=== PATIENT | male | born 1945 | race Caucasian/White ===

== ENCOUNTER 2018-04-19 15:39 | Emergency (ER) | payer MEDICARE ==
[~2018-04-19] VITALS: Ht 180.3 cm; Wt 95.3 kg
[~2018-04-19 15:39] MED LIST: ASPIR 8181 MG; FAMOTIDINE; MULTIVITAMIN1 CTB; NITROTAB0.4 MG; PANTOPRAZOLE40 MG PO; PLAVIX75 MG; SIMVASTATIN40 MG; SYNTHROID0.125 MG
[2018-04-19] MEDS ORDERED: CEPHALEXIN500 M1 PO (16:23)
== END 2018-04-19 18:20 | disposition home or self-care (01) ==
LOC: ED 15:39
DX: S61.212A Laceration without foreign body of right middle finger without damage to nail, initial encounter (principal); Z23 Encounter for immunization; Z79.899 Other long term (current) drug therapy; Z79.82 Long term (current) use of aspirin; Z90.49 Acquired absence of other specified parts of digestive tract; W45.8XXA Other foreign body or object entering through skin, initial encounter; Y93.89 Activity, other specified; Y92.098 Other place in other non-institutional residence as the place of occurrence of the external cause; Y99.8 Other external cause status

== ENCOUNTER 2019-05-06 14:08 | Inpatient (IN) | payer MEDICARE ==
[~2019-05-06] VITALS: Ht 180.3 cm; Wt 98.1 kg
--- NOTE | ~2019-05-06 | EKG ---
[place], [place] ELECTROCARDIOGRAM REPORT NAME: MARCY BHAKTA UNIT #: [id number] ROOM: 406 DOCTOR: CRISTY DRAFT REPORT BIRTHDATE: [birth year] [facility] Test Date: 2019-05-06 Test Time: 19:47:05 Pat Name: MARCY BHAKTA Department: Room: 406 Gender: M Keyboard Specialist: : 1945 Requested By: KALE HERNANDEZ Order Number: [id number] Reading MD: Laura Ramos MD Measurements Intervals [place] Rate: 81 P: 54 LA: 207 QRS: 45 QRSD: 112 T: 46 QT: 406 QTc: 472 Interpretive Statements Sinus rhythm Abnormal R-wave progression, early transition Inferior infarct, old Baseline wander in lead(s) V2 Electronically Signed On 05-08-2019 8:53:55 PST by Laura Ramos MD CM:EKGRPT:ELECTROCARDIOGRAM REPORT 46 [id number] KALE MUNIZ DRAFT REPORT KALE HERNANDEZ
--- NOTE | ~2019-05-06 | EKG ---
[place], [place] ELECTROCARDIOGRAM REPORT NAME: MARCY BHAKTA UNIT #: [id number] ROOM: 406 DOCTOR: CRISTY DRAFT REPORT BIRTHDATE: [birth year] [facility] Test Date: 2019-05-06 Test Time: 22:36:39 Pat Name: MARCY BHAKTA Department: Room: 406 Gender: M Column Precaster: : 1945 Requested By: KALE HERNANDEZ Order Number: [id number] Reading MD: Laura Ramos MD Measurements Intervals [place] Rate: 71 P: 35 GA: 246 QRS: 44 QRSD: 121 T: 60 QT: 414 QTc: 450 Interpretive Statements Sinus rhythm Prolonged GA interval Nonspecific intraventricular conduction delay Inferior infarct, old Baseline wander in lead(s) I,II,aVR Electronically Signed On 05-08-2019 8:54:10 PST by Laura Ramos MD CM:EKGRPT:ELECTROCARDIOGRAM REPORT 0854 KALE MUNIZ DRAFT REPORT KALE HERNANDEZ
--- NOTE | ~2019-05-06 | O ---
[place], [place] OPERATIVE NOTE NAME: MARCY BHAKTA [facility] #: [id number] UNIT #: [id number] ROOM: 406 DOCTOR: ARRON GUZMAN DO BIRTHDATE: [birth year] DOS: 05/07/2019 PREOPERATIVE DIAGNOSIS: Right femoral neck fracture. POSTOPERATIVE DIAGNOSIS: Right femoral neck fracture. OPERATIVE PROCEDURE: Right femoral hemiarthroplasty bipolar. SURGEON: Arron Guzman DO. CONTRACT CLERK: Humberto Hawkins Hoder. ANESTHESIA: JUAN Carrera, general endotracheal. INDICATIONS: The patient is a 73-year-old male with a history of a fall at his home yesterday while he was getting dressed. He states his foot caught in his pants and he fell landing on the right hip causing pain and inability to ambulate. X-rays indicated a minimally displaced mid femoral neck fracture. The risks and benefits of the procedure were explained to the patient preoperatively. Preoperative labs and x-rays were obtained including medical and cardiac optimization. PROCEDURE: The right hip was marked in the holding room. The patient was brought to the operative suite. A general anesthetic with endotracheal intubation was performed. The patient was placed in a lateral decubitus position with the right lower extremity superior positioned in a Bolton device. All bony prominences were padded. Timeout was performed. The right lower extremity was prepped and draped in the usual orthopedic fashion. The patient received Ancef 2 grams IV piggyback. The posterior or southern incision was planned and marked with a marking pen. The skin was injected with Marcaine 0.5% with epinephrine. The posterior incision was made sharply with a scalpel. Subcutaneous tissue was spread down to the level of the gluteus christopher. The gluteus christopher was divided along its fibers. The extremity was flexed and externally rotated and the short external rotators were identified. The fracture was noted to be significantly displaced. The short external rotators were released from their insertion on the greater trochanter. These were retracted posteriorly. The fractured neck was noted to have broken through the capsule. This was cleared of any soft tissue. The guide was used to pawan the calcar cut. This was made sharply with an oscillating saw. The femoral neck was removed with an osteotome. The entry point was lateralized using a box osteotome followed by straight awl and a lateral rasp. The small starter broach was utilized followed by a size 8 broach and progressing to a size 12. Attention was paid to the anteversion. The femoral head was removed using a large Steinmann pin threaded and a skid. This was taken to the back table and measured and found to be a 54 mm outer diameter. The acetabulum was irrigated and cleared of any bony debris. Trials were placed and the size 12 femoral stem with a high offset +5 head and a [place], [place] OPERATIVE NOTE NAME: MARCY BHAKTA UNIT #: [id number] ROOM: [facility] DOCTOR: ARRON GUZMAN DO BIRTHDATE: [birth year] 54 mm outer diameter bipolar head were noted to have the best reduction and stability. The trials were removed and the area was again copiously irrigated with normal saline. The implants the Corail cementless femoral stem was pressfit into place. This was a size 12. The Articul/stephany femoral head with a bipolar head were cold welded into place. The fit and fill were found to be adequate as the hip was reduced into the acetabulum. The hip was again taken through a range of motion with flexion, extension, internal and external rotation. Shucking was also evaluated. There was noted to be good motion and stability. The area was filled with TXA. Any bleeding was controlled with electrocautery. After 10 minutes, this was irrigated and the fascia was closed on the gluteus musculature after the short external rotators had been repaired. This was done with 0 Vicryl. 2-0 Vicryl was used for the adipose layer. Skin closure was completed with annabella. The incision was again injected with Marcaine 0.5% with epinephrine. Xeroform, 4 x 4s, ABDs, and Tegaderm dressing were applied. The abduction pillow was put into place. The patient was returned to a supine position. The anesthetic was reversed. The patient was extubated and taken to the recovery room in satisfactory condition. Sponge and needle count correct. ESTIMATED BLOOD LOSS: 250 mL. SPECIMENS: Femoral head and a portion of the neck. DRAINS: None. PACKING: None. COMPLICATIONS: None. The patient received Ancef 2 grams IV piggyback preoperatively. Local injection with Marcaine 0.5% with epinephrine was utilized. TXA was utilized within the wound. IMPLANTS: 1. DePuy Corail hip system, size 12 high offset, no collar, cementless. 2. Self-centering bipolar head, 54 mm outer diameter. 3. Articul/stephany femoral head 28 mm x +5 mm taper. [place], [place] OPERATIVE NOTE NAME: MARCY BHAKTA Yuri UNIT #: [id number] ROOM: [facility] DOCTOR: ARRON GUZMAN DO BIRTHDATE: [birth year] ARRON GUZMAN DO CM:OPRECORD:OPERATIVE NOTE 09 23 ARRON GUZMAN DO 05/07/192024 interface
--- NOTE | ~2019-05-06 | EKG ---
[place], [place] ELECTROCARDIOGRAM REPORT NAME: MARCY BHAKTA UNIT #: [id number] ROOM: 406 DOCTOR: CRISTY DRAFT REPORT BIRTHDATE: [birth year] [facility] Test Date: 2019-05-06 Test Time: 17:23:38 Pat Name: MARCY BHAKTA Department: Room: 406 Gender: M Can Sterilizer: : 1945 Requested By: KALE HERNANDEZ Order Number: [id number] Reading MD: Laura Ramos MD Measurements Intervals [place] Rate: 78 P: 54 IA: 210 QRS: 34 QRSD: 110 T: 41 QT: 420 QTc: 479 Interpretive Statements Sinus rhythm Consider inferior infarct Posterior infarct, old No previous ECG available for comparison Electronically Signed On 05-08-2019 8:53:46 PST by Laura Ramos MD CM:EKGRPT:ELECTROCARDIOGRAM REPORT [id number] KALE MUNIZ DRAFT REPORT KALE HERNANDEZ
[~2019-05-06 14:08] MED LIST changes: +CEPHALEXIN500 M1 PO
[2019-05-06 14:09] VITALS: BP 164/65
[2019-05-06 16:52] LABS: BASO # 0.1 10*3/uL (0.0-0.1); BASO % 0.3 % (0.0-1.0); EOS % 0.1 % (1.0-4.0); HEMATOCRIT 46.3 % (42.0-52.0); HEMOGLOBIN 15.3 g/dl (14.0-18.0); LYMPH % 11.7 % (27.0-41.0); MEAN CELL VOLUME 89.7 fl (80.0-94.0); MEAN CORPUSCULAR HGB 29.7 pg (27.0-31.0); MEAN PLATELET VOLUME 9.3 fl (9.6-12.3); MONO # 0.9 10*3/uL (0.1-1.0); MONO % 5.2 % (3.0-9.0); NEUT # 14.4 10*3/uL (2.3-7.9); NEUT % 82.2 % (47.0-73.0); PLATELET COUNT AUTOMATED 211 10*3/uL (130-400); RED BLOOD COUNT 5.16 10*6/uL (4.50-5.90); RED CELL DISTRI WIDTH 12.6 % (0-14.5); WHITE BLOOD COUNT 17.5 10*3/uL (4.8-10.8)
[2019-05-06 16:58] LABS: ALKALINE PHOSPHATASE 89 U/L (45-117); BUN 15 mg/dl (7-24); CHLORIDE 106 mmol/L (98-107); CREATININE 1.16 mg/dL (0.70-1.30); POTASSIUM 4.8 mmol/L (3.5-5.1); SGOT/AST 24 IU/L (3-35); SGPT/ALT 28 U/L (12-78); SODIUM 140 mmol/L (136-145); TOTAL PROTEIN 7.2 gm/dL (6.4-8.2)
[2019-05-06] MEDS ORDERED: CYMBALTA60 MG PO (17:44)
[2019-05-06] MEDS ORDERED: OMEPRAZOLE40 MG PO (17:44)
[2019-05-06 17:51] VITALS: BP 136/81
[2019-05-06 18:40] LABS: BILIRUBIN NEGATIVE (NEGATIVE); BLOOD 1+ (NEGATIVE); CLARITY CLEAR (CLEAR); COLOR YELLOW (YELLOW); GLUCOSE NEGATIVE (NEGATIVE); KETONE TRACE (NEGATIVE); LEUKO ESTERASE NEGATIVE (NEGATIVE); NITRITE NEGATIVE (NEGATIVE); PH 6.5 (5.0-9.0); SPECIFIC GRAVITY 1.015 (1.005-1.030)
[2019-05-06 18:48] LABS: MUCOUS 1+
[2019-05-06 20:00] VITALS: BP 128/74
[2019-05-07] VITALS (9 sets, daily range): BP systolic 122–162; BP diastolic 58–83
[2019-05-07 06:54] LABS: BASO # 0.1 10*3/uL (0.0-0.1); BASO % 0.7 % (0.0-1.0); EOS # 0.2 10*3/uL (0.0-0.4); EOS % 1.9 % (1.0-4.0); HEMATOCRIT 43.8 % (42.0-52.0); HEMOGLOBIN 14.7 g/dl (14.0-18.0); LYMPH # 2.5 10*3/uL (1.3-4.4); LYMPH % 23.3 % (27.0-41.0); MEAN CORPUSCULAR HGB 29.9 pg (27.0-31.0); MEAN CORPUSCULAR HGB CONC 33.6 g/dl (33.0-37.0); MEAN PLATELET VOLUME 9.4 fl (9.6-12.3); MONO # 0.9 10*3/uL (0.1-1.0); MONO % 8.4 % (3.0-9.0); NEUT # 7.1 10*3/uL (2.3-7.9); NEUT % 65.4 % (47.0-73.0); PLATELET COUNT AUTOMATED 184 10*3/uL (130-400); RED BLOOD COUNT 4.92 10*6/uL (4.50-5.90); RED CELL DISTRI WIDTH 12.5 % (0-14.5); WHITE BLOOD COUNT 10.9 10*3/uL (4.8-10.8)
[2019-05-07 07:21] LABS: ALBUMIN 3.5 gm/dl (3.1-4.5); ALKALINE PHOSPHATASE 84 U/L (45-117); BUN 15 mg/dl (7-24); CHLORIDE 107 mmol/L (98-107); CHOLESTEROL 159 mg/dL (<200); CREATININE 1.12 mg/dL (0.70-1.30); HDL CHOLESTEROL 41 mg/dl (40-60); LDL CHOLESTEROL 89 mg/dL (9-159); PHOSPHOROUS 2.3 mg/dL (2.5-4.9); SGOT/AST 21 IU/L (3-35); SGPT/ALT 24 U/L (12-78); SODIUM 139 mmol/L (136-145); TOTAL PROTEIN 6.8 gm/dL (6.4-8.2); TRIGLYCERIDES 146 mg/dl (<150); VLDL CHOLESTEROL 29 mg/dL (6-40)
[2019-05-08] VITALS: BP 138/69
[2019-05-08 06:43] LABS: HEMATOCRIT 43.2 % (42.0-52.0); HEMOGLOBIN 14.3 g/dl (14.0-18.0); MEAN CELL VOLUME 89.6 fl (80.0-94.0); MEAN CORPUSCULAR HGB 29.7 pg (27.0-31.0); MEAN CORPUSCULAR HGB CONC 33.1 g/dl (33.0-37.0); MEAN PLATELET VOLUME 9.5 fl (9.6-12.3); PLATELET COUNT AUTOMATED 232 10*3/uL (130-400); RED BLOOD COUNT 4.82 10*6/uL (4.50-5.90); RED CELL DISTRI WIDTH 12.8 % (0-14.5); WHITE BLOOD COUNT 16.3 10*3/uL (4.8-10.8)
[2019-05-08 07:07] LABS: BUN 13 mg/dl (7-24); CHLORIDE 102 mmol/L (98-107); CREATININE 1.22 mg/dL (0.70-1.30); SODIUM 137 mmol/L (136-145)
[2019-05-08 08:00] VITALS: BP 122/70
[2019-05-08 08:19] LABS: PLATELET SUFFICIENCY NORMAL (NORMAL); TOTAL CELLS COUNTED 100 #CELLS
[2019-05-08 12:00] VITALS: BP 121/72
[2019-05-08 16:00] VITALS: BP 116/56
[2019-05-08 20:00] VITALS: BP 131/64
[2019-05-09] VITALS: BP 138/69
[2019-05-09 06:47] LABS: HEMATOCRIT 35.8 % (42.0-52.0); HEMOGLOBIN 11.9 g/dl (14.0-18.0); MEAN CELL VOLUME 89.1 fl (80.0-94.0); MEAN CORPUSCULAR HGB 29.6 pg (27.0-31.0); MEAN CORPUSCULAR HGB CONC 33.2 g/dl (33.0-37.0); MEAN PLATELET VOLUME 9.6 fl (9.6-12.3); PLATELET COUNT AUTOMATED 175 10*3/uL (130-400); RED BLOOD COUNT 4.02 10*6/uL (4.50-5.90); RED CELL DISTRI WIDTH 12.9 % (0-14.5); WHITE BLOOD COUNT 14.3 10*3/uL (4.8-10.8)
[2019-05-09 06:58] LABS: BUN 17 mg/dl (7-24); CHLORIDE 102 mmol/L (98-107); CREATININE 0.98 mg/dL (0.70-1.30); POTASSIUM 3.8 mmol/L (3.5-5.1); SODIUM 135 mmol/L (136-145)
[2019-05-09 07:59] LABS: TOTAL CELLS COUNTED 100 #CELLS
[2019-05-09 08:00] VITALS: BP 110/70; BP 114/56
[2019-05-09 08:00] LABS: PLATELET SUFFICIENCY NORMAL (NORMAL)
[2019-05-09 11:48] VITALS: BP 112/62
[2019-05-09 16:00] VITALS: BP 131/70
[2019-05-09 20:00] VITALS: BP 118/55
[2019-05-10] VITALS: BP 133/61
[2019-05-10 01:13] LABS: BILIRUBIN NEGATIVE (NEGATIVE); BLOOD NEGATIVE (NEGATIVE); CLARITY CLEAR (CLEAR); COLOR YELLOW (YELLOW); GLUCOSE NEGATIVE (NEGATIVE); KETONE NEGATIVE (NEGATIVE); LEUKO ESTERASE NEGATIVE (NEGATIVE); NITRITE NEGATIVE (NEGATIVE)
[2019-05-10 06:37] LABS: BASO % 0.3 % (0.0-1.0); EOS # 0.2 10*3/uL (0.0-0.4); EOS % 2.3 % (1.0-4.0); HEMATOCRIT 34.5 % (42.0-52.0); HEMOGLOBIN 11.3 g/dl (14.0-18.0); LYMPH # 2.1 10*3/uL (1.3-4.4); LYMPH % 20.5 % (27.0-41.0); MEAN CELL VOLUME 88.9 fl (80.0-94.0); MEAN CORPUSCULAR HGB 29.1 pg (27.0-31.0); MEAN CORPUSCULAR HGB CONC 32.8 g/dl (33.0-37.0); MEAN PLATELET VOLUME 9.7 fl (9.6-12.3); MONO % 9.9 % (3.0-9.0); NEUT # 6.8 10*3/uL (2.3-7.9); NEUT % 66.6 % (47.0-73.0); PLATELET COUNT AUTOMATED 208 10*3/uL (130-400); RED BLOOD COUNT 3.88 10*6/uL (4.50-5.90); RED CELL DISTRI WIDTH 12.8 % (0-14.5); WHITE BLOOD COUNT 10.2 10*3/uL (4.8-10.8)
[2019-05-10 06:45] LABS: BUN 16 mg/dl (7-24); CHLORIDE 100 mmol/L (98-107); CREATININE 0.99 mg/dL (0.70-1.30); POTASSIUM 3.7 mmol/L (3.5-5.1); SODIUM 135 mmol/L (136-145)
[2019-05-10 08:00] VITALS: BP 144/72
[2019-05-10 12:00] VITALS: BP 132/67
[2019-05-10] MEDS ORDERED: Lovenox40 MG/0.4 PO (13:29)
[2019-05-10] MEDS ORDERED: ECPIRIN325 MG PO (13:29)
[2019-05-10] MEDS ORDERED: PERCOCET 7.5-31 EACH PO (14:09)
== END 2019-05-10 16:20 | disposition other institution (70) | DRG 470 ==
LOC: ED 14:08 → 4E 16:07 → EDHOLD 16:07 → 4E 17:25
PROVIDERS: Family Medicine; Internal Medicine; Orthopaedic Surgery; Student in an Organized Health Care Education/Training Program; ADMIT Internal Medicine
PROC: 0SRR0JA Replacement of Right Hip Joint, Femoral Surface with Synthetic Substitute, Uncemented, Open Approach (ICD-10-PCS; principal; 2019-05-07)
DX: S72.001A Fracture of unspecified part of neck of right femur, initial encounter for closed fracture (principal); E87.1 Hypo-osmolality and hyponatremia; E83.39 Other disorders of phosphorus metabolism; D72.829 Elevated white blood cell count, unspecified; E66.9 Obesity, unspecified; F32.9 Major depressive disorder, single episode, unspecified; E03.9 Hypothyroidism, unspecified; E78.5 Hyperlipidemia, unspecified; K21.9 Gastro-esophageal reflux disease without esophagitis; Z96.652 Presence of left artificial knee joint; I25.10 Atherosclerotic heart disease of native coronary artery without angina pectoris; I10 Essential (primary) hypertension; M19.90 Unspecified osteoarthritis, unspecified site; R73.9 Hyperglycemia, unspecified; W01.0XXA Fall on same level from slipping, tripping and stumbling without subsequent striking against object, initial encounter; Y93.89 Activity, other specified; Y99.8 Other external cause status; Z90.49 Acquired absence of other specified parts of digestive tract; Z95.5 Presence of coronary angioplasty implant and graft; Y92.091 Bathroom in other non-institutional residence as the place of occurrence of the external cause; Z87.891 Personal history of nicotine dependence; Z82.3 Family history of stroke; Z82.49 Family history of ischemic heart disease and other diseases of the circulatory system; Z79.82 Long term (current) use of aspirin; Z79.899 Other long term (current) drug therapy; I25.2 Old myocardial infarction; Z68.30 Body mass index [BMI] 30.0-30.9, adult

== ENCOUNTER → 2019-06-25 | Outpatient (CLI) | payer MEDICARE ==
[~2019-06-25] MED LIST changes: +CYMBALTA60 MG PO; +ECPIRIN325 MG PO; +Lovenox40 MG/0.4 PO; +OMEPRAZOLE40 MG PO; +PERCOCET 7.5-31 EACH PO
== END | disposition home or self-care (01) ==
LOC: ORTHO 01:07
DX: S72.001D Fracture of unspecified part of neck of right femur, subsequent encounter for closed fracture with routine healing (principal); X58.XXXD Exposure to other specified factors, subsequent encounter

== ENCOUNTER 2020-01-14 19:36 | Emergency (ER) | payer MEDICARE ==
[~2020-01-14] VITALS: Ht 180.3 cm; Wt 99.8 kg
[2020-01-14 20:05] LABS: BASO # 0.1 10*3/uL (0.0-0.1); BASO % 0.5 % (0.0-1.0); EOS # 0.1 10*3/uL (0.0-0.4); EOS % 0.6 % (1.0-4.0); LYMPH # 2.8 10*3/uL (1.3-4.4); LYMPH % 29.9 % (27.0-41.0); MEAN CELL VOLUME 87.3 fl (80.0-94.0); MEAN CORPUSCULAR HGB 29.2 pg (27.0-31.0); MEAN CORPUSCULAR HGB CONC 33.5 g/dl (33.0-37.0); MEAN PLATELET VOLUME 9.1 fl (9.6-12.3); MONO # 0.8 10*3/uL (0.1-1.0); MONO % 8.3 % (3.0-9.0); NEUT # 5.7 10*3/uL (2.3-7.9); NEUT % 60.5 % (47.0-73.0); PLATELET COUNT AUTOMATED 212 10*3/uL (130-400); RED BLOOD COUNT 5.61 10*6/uL (4.50-5.90); RED CELL DISTRI WIDTH 12.5 % (0-14.5); WHITE BLOOD COUNT 9.4 10*3/uL (4.8-10.8)
[2020-01-14 20:19] LABS: ACT PARTIAL THROMBO TIME 26.7 SECONDS (20.0-32.1)
[2020-01-14 20:24] LABS: ALBUMIN 4.1 gm/dl (3.1-4.5); ALKALINE PHOSPHATASE 87 U/L (45-117); BUN 17 mg/dl (7-24); CHLORIDE 104 mmol/L (98-107); CREATININE 1.09 mg/dL (0.70-1.30); SGOT/AST 28 IU/L (3-35); SGPT/ALT 32 U/L (12-78); SODIUM 137 mmol/L (136-145); TOTAL PROTEIN 7.8 gm/dL (6.4-8.2)
[2020-01-14 20:26] LABS: TROPONIN I 0.077 ng/ml (<0.045)
[2020-01-14] MEDS ORDERED: GOOD NEIGHBOR M25 M1 PO (23:18)
== END 2020-01-14 23:35 | disposition home or self-care (01) ==
LOC: ED 19:36
PROVIDERS: Family Medicine
DX: R42 Dizziness and giddiness (principal); I25.2 Old myocardial infarction; K21.9 Gastro-esophageal reflux disease without esophagitis; E78.00 Pure hypercholesterolemia, unspecified; Z79.899 Other long term (current) drug therapy; Z79.82 Long term (current) use of aspirin

== ENCOUNTER → 2021-03-05 | Outpatient (CLI) | payer MEDICARE ==
[~2021-03-05] MED LIST changes: +GOOD NEIGHBOR M25 M1 PO
== END | disposition home or self-care (01) ==
LOC: COVID19 14:56
PROVIDERS: ATTEND Student in an Organized Health Care Education/Training Program
DX: U07.1 COVID-19 (principal)

== ENCOUNTER 2022-11-04 20:12 | Emergency (ER) | payer MEDICARE ==
[~2022-11-04] VITALS: Ht 180.3 cm; Wt 99.8 kg
== END 2022-11-04 22:25 | disposition home or self-care (01) ==
LOC: ED 20:12
DX: S80.11XA Contusion of right lower leg, initial encounter (principal); I25.2 Old myocardial infarction; K21.9 Gastro-esophageal reflux disease without esophagitis; E78.00 Pure hypercholesterolemia, unspecified; Z98.890 Other specified postprocedural states; Z90.49 Acquired absence of other specified parts of digestive tract; Z87.891 Personal history of nicotine dependence; W17.89XA Other fall from one level to another, initial encounter; Y93.89 Activity, other specified; Y92.009 Unspecified place in unspecified non-institutional (private) residence as the place of occurrence of the external cause; Y99.8 Other external cause status

== ENCOUNTER 2025-02-15 19:27 | Emergency (ER) | payer MEDICARE ==
[~2025-02-15] VITALS: Ht 180.3 cm; Wt 99.8 kg
[2025-02-15] MEDS ORDERED: MG-AL HYDROXIDE/SIMETICONE 30 ML UDC PO STA (19:55)
[2025-02-15] MEDS ORDERED: Dicyclomine Hydrochloride 20 MG/10 ML OSYR PO STA (19:55)
[2025-02-15] MEDS ORDERED: FAMOTIDINE 50 ML IV ONE (19:55)
[2025-02-15] MEDS ORDERED: SODIUM CHLORIDE 0.9% 1,000 ML IV ONE (19:55)
[2025-02-15] MEDS ORDERED: IOHEXOL 300 MG/ML 100 ML VIAL IV ONE (20:05)
[2025-02-15 20:11] LABS: BASO # 0.0 10*3/uL (0.0-0.1); BASO % 0.1 % (0.0-1.0); EOS # 0.0 10*3/uL (0.0-0.4); EOS % 0.1 % (1.0-4.0); MEAN CELL VOLUME 88.2 fl (80.0-94.0); MEAN CORPUSCULAR HGB 29.1 pg (27.0-31.0); MEAN PLATELET VOLUME 9.2 fl (9.6-12.3); MONO # 0.4 10*3/uL (0.1-1.0); MONO % 2.7 % (3.0-9.0); NEUT # 10.8 10*3/uL (2.3-7.9); NEUT % 71.9 % (47.0-73.0); NUCLEATED RED BLOOD CELL 0.0 % (0.0-0.0); NUCLEATED RED BLOOD CELL 0.0 10*3/uL (0.0-0.0); PLATELET COUNT AUTOMATED 189 10*3/uL (130-400); RED CELL DISTRI WIDTH 13.2 % (0-14.5)
[2025-02-15 20:26] LABS: ACT PARTIAL THROMBO TIME 26.0 SECONDS (20.0-32.1)
[2025-02-15 20:35] LABS: BUN 25 mg/dl (9-23); SGPT/ALT 28 U/L (5-49)
[2025-02-15] MEDS ORDERED: OMEPRAZOLE10 MG PO (22:35)
== END 2025-02-15 23:00 | disposition home or self-care (01) ==
LOC: ED 19:27
PROVIDERS: Internal Medicine
DX: K21.9 Gastro-esophageal reflux disease without esophagitis (principal); R79.89 Other specified abnormal findings of blood chemistry; Z79.899 Other long term (current) drug therapy; Z95.5 Presence of coronary angioplasty implant and graft; Z98.890 Other specified postprocedural states; Z90.49 Acquired absence of other specified parts of digestive tract; Z87.891 Personal history of nicotine dependence

== ENCOUNTER 2025-06-16 16:14 | Observation (INO) | payer MEDICARE ==
[~2025-06-16] VITALS: Ht 180.3 cm; Wt 100.7 kg
[~2025-06-16 16:14] MED LIST changes: +OMEPRAZOLE10 MG PO; -SIMVASTATIN40 MG; +SIMVASTATIN40 MG PO
[2025-06-16 16:23] VITALS: BP 162/73
[2025-06-16] MEDS ORDERED: Albuterol Sulf/Ipratropium 3 ML VIAL NEB ONE (16:30)
[2025-06-16 16:45] LABS: BASO # 0.1 10*3/uL (0.0-0.1); BASO % 0.3 % (0.0-1.0); EOS # 0.1 10*3/uL (0.0-0.4); EOS % 0.4 % (1.0-4.0); MEAN CELL VOLUME 89.8 fl (80.0-94.0); MEAN CORPUSCULAR HGB 29.8 pg (27.0-31.0); MEAN PLATELET VOLUME 9.2 fl (9.6-12.3); MONO # 1.1 10*3/uL (0.1-1.0); MONO % 6.6 % (3.0-9.0); NEUT # 10.7 10*3/uL (2.3-7.9); NEUT % 67.8 % (47.0-73.0); NUCLEATED RED BLOOD CELL 0.0 % (0.0-0.0); NUCLEATED RED BLOOD CELL 0.0 10*3/uL (0.0-0.0); PLATELET COUNT AUTOMATED 156 10*3/uL (130-400); RED CELL DISTRI WIDTH 13.3 % (0-14.5)
[2025-06-16 17:05] LABS: BUN 12 mg/dl (9-23)
[2025-06-16] MEDS ORDERED: SODIUM CHLORIDE 0.9% 1,000 ML IV ONE (17:45)
[2025-06-16] MEDS ORDERED: BISACODYL 5 MG TAB PO PRN (18:10)
[2025-06-16] MEDS ORDERED: ACETAMINOPHEN 325 MG TAB PO PRN (18:10)
[2025-06-16] MEDS ORDERED: ACETAMINOPHEN 650 MG SUPP R PRN (18:10)
[2025-06-16] MEDS ORDERED: Ondansetron Hydrochloride 4 MG/2 ML VIAL IV PRN (18:10)
[2025-06-16] MEDS ORDERED: Acetaminophen/Hydrocodone 5 MG/325 MG TABLET PO PRN (18:10)
[2025-06-16] MEDS ORDERED: BISACODYL 10 MG SUPP R PRN (18:10)
[2025-06-16] MEDS ORDERED: TEMAZEPAM 15 MG CAP PO PRN (18:10)
[2025-06-16] MEDS ORDERED: Albuterol Sulf/Ipratropium 3 ML VIAL NEB SCH (18:20)
[2025-06-16 18:43] VITALS: BP 115/71
[2025-06-16 20:00] VITALS: BP 110/68
[2025-06-16 20:10] VITALS: BP 110/68
[2025-06-16] MEDS ORDERED: ASPIRIN81 M1 PO (20:36)
[2025-06-16] MEDS ORDERED: SERTRALINE HYD100 MG PO (20:41)
[2025-06-16] MEDS ORDERED: GUAIFENESIN 600 MG TAB ER PO SCH (22:00)
[2025-06-17] VITALS: BP 110/57
[2025-06-17 05:17] LABS: BUN 13 mg/dl (9-23)
[2025-06-17 06:23] LABS: BASO # 0.0 10*3/uL (0.0-0.1); BASO % 0.4 % (0.0-1.0); EOS # 0.0 10*3/uL (0.0-0.4); EOS % 0.4 % (1.0-4.0); MEAN CELL VOLUME 88.7 fl (80.0-94.0); MEAN CORPUSCULAR HGB 29.1 pg (27.0-31.0); MEAN PLATELET VOLUME 9.8 fl (9.6-12.3); MONO # 0.9 10*3/uL (0.1-1.0); MONO % 8.1 % (3.0-9.0); NEUT # 5.7 10*3/uL (2.3-7.9); NEUT % 50.0 % (47.0-73.0); NUCLEATED RED BLOOD CELL 0.0 % (0.0-0.0); NUCLEATED RED BLOOD CELL 0.0 10*3/uL (0.0-0.0); PLATELET COUNT AUTOMATED 137 10*3/uL (130-400); RED CELL DISTRI WIDTH 13.8 % (0-14.5)
[2025-06-17 08:00] VITALS: BP 124/71
[2025-06-17 12:00] VITALS: BP 151/79
[2025-06-17] MEDS ORDERED: MUCUS RELIEF E600 MG PO (13:49)
== END 2025-06-17 16:19 | disposition home or self-care (01) ==
LOC: ED 16:14 → EDHOLD 17:46 → 4E 19:05
PROVIDERS: Nurse Practitioner Family; Student in an Organized Health Care Education/Training Program; ADMIT Internal Medicine; ATTEND Internal Medicine
DX: J06.9 Acute upper respiratory infection, unspecified (principal); D72.829 Elevated white blood cell count, unspecified; J98.4 Other disorders of lung; R65.10 Systemic inflammatory response syndrome (SIRS) of non-infectious origin without acute organ dysfunction; I25.10 Atherosclerotic heart disease of native coronary artery without angina pectoris; F32.9 Major depressive disorder, single episode, unspecified; E03.9 Hypothyroidism, unspecified; E78.5 Hyperlipidemia, unspecified; K21.9 Gastro-esophageal reflux disease without esophagitis; Z79.899 Other long term (current) drug therapy